=== PATIENT | male | born 1945 | race Caucasian/White ===

== ENCOUNTER 2017-11-30 13:08 | Emergency (ER) | payer OTHER ==
[2017-11-30] MEDS ORDERED: ANECTINE IVP STA (13:17)
[2017-11-30] MEDS ORDERED: AMIDATE IVP STA (13:18)
[2017-11-30] MEDS ORDERED: LASIX IVP STA (13:19)
[2017-11-30 13:24] VITALS: TEMP 98.3; BMI 31.6
[2017-11-30] MEDS ORDERED: SUBLIMAZE ONE (13:26)
[2017-11-30] MEDS ORDERED: VERSED ONE (13:27)
[2017-11-30] MEDS ORDERED: SUBLIMAZE IVP STA (13:33)
[2017-11-30] MEDS ORDERED: VERSED IVP STA (13:33)
--- NOTE | 2017-11-30 13:36 | ED.PDOC ---
General ED Provider: Dr. SAW WESLEY Chief Complaint: Shortness of Air Stated Complaint: SHORTNESS OF BREATH Time Seen by Physician: 13:13 (ARRIVED HYPOXIC WITH OS SAT 70'S ON N.R.B MASK) Mode of Arrival: Ambulance Information Source: Patient Primary Care Provider: MICKIE DA SILVA Nursing and Triage Documentation Reviewed and Agree: Yes (PT HAD A STENT PLACED 4 DAYS AGO AT [facility]) Reviewed sepsis parameters & appropriate labs ordered?: Yes System Inflammatory Response Syndrome: Not Applicable Sepsis Protocol: For patient's 13 years and over: Temp is 96.8 and below OR 101 and greater Pulse >90 BPM Resp >20/minute Acutely Altered Mental Status Are patient's symptoms suggestive of a new infection, such as: -Pneumonia -Skin, Soft Tissue -Endocarditis -UTI -Bone, Joint Infection -Implantable Device -Acute Abdominal Infection -Wound Infection -Meningitis -Blood Stream Catheter Infection -Unknown System Inflammatory Response Syndrome: Not Applicable Respiratory Complaint Exam - Shortness of Air Complaint/Exam Onset/Duration: TODAY ACUTE PRIOR TO ARRIVAL Symptoms Are: Still present ( STATED PT HAD A FEVER WHEN HE WAS D/C FROM [facility]) Timing: Constant Initial Severity: Severe Current Severity: Severe Character: Reports: Dyspnea at rest, Dyspnea on exertion, Orthopnea Aggravating: Reports: Recumbent position Alleviating: Reports: Oxygen, Upright position Associated Signs and Symptoms: Reports: Diaphoresis, Rapid breathing History of Healthcare-Acquired Pneumonia: No Pulmonary Embolism Risk Factors: Reports: Bedrest ( RECENT PROCEDURE STENT ) Cardiac Risk Factors: Reports: CAD, Diabetes, Hypertension Pseudomonas Risk Factors: Reports: None Tuberculosis Risk Factors: Reports: None Home Oxygen Use: No Respiratory Distress: Moderate Stridor Present: No Tracheal Deviation: No Subcutaneous Emphysema: No Accessory Muscle Use: No Retractions: Not Present Diminished Breath Sounds: Yes (RIGHT CHEST RALES ALL LUNG REGIONS) Prolonged Expiratory Phase: No Unable to Speak Full Sentences: No Fatigue: No Leg Swelling: No Jaspreet's Sign Present: No Grunting Respirations: No Kussmaul Respirations: No Differential Diagnoses: CHF, Pulmonary Edema, Pneumonia, Other (SEPSIS .) Review of Systems - Review Of Systems Constitutional: Reports: No symptoms Eyes: Reports: No symptoms Ears, Nose, Mouth, Throat: Reports: No symptoms Respiratory: Reports: Short of air Cardiac: Reports: No symptoms GI: Reports: No symptoms : Reports: No symptoms Musculoskeletal: Reports: No symptoms Skin: Reports: No symptoms Neurological: Reports: No symptoms Endocrine: Reports: No symptoms Hematologic/Lymphatic: Reports: No symptoms All Other Systems: Reviewed and Negative Past Medical History - Past Medical History Previously Healthy: Yes Endocrine: Reports: DM 2 Cardiovascular: Reports: CAD, Other (AAA S/P REPAIR X 3 DAYS) Respiratory: Reports: None Hematological: Reports: None Gastrointestinal: Reports: None Genitourinary: Reports: None Neuro/Psych: Reports: None Musculoskeletal: Reports: None Cancer: Reports: None - Surgical History General Surgical History: Reports: None - Family History Family History: Reports: None - Social History Smoking Status: Former smoker Hx Substance Use: No Alcohol Screening: None Physical Exam - Physical Exam Appearance: Ill-appearing Ill-appearing: Severe Pain Distress: Severe Eyes: MARCELO, EOMI, Conjunctiva clear ENT: Ears normal, Nose normal, Oropharynx normal Respiratory: Breath sounds diminished, Crackles (RIGHT LUNG) Cardiovascular: RRR, Pulses normal, No rub, No murmur GI/: Nontender, Bowel sounds normal Musculoskeletal: Normal strength, ROM intact, No edema, No calf tenderness Skin: Warm, Dry (BRUSED RIGHT AND LEFT GROIN ) Neurological: Sensation intact, Motor intact, Reflexes intact, Cranial nerves intact, Alert, Oriented Psychiatric: Affect appropriate, Mood appropriate Interpretation - Radiology Interpretation Radiology Interpretation By: Radiologist (PULMONARY EDEMA INTUBATED TUBE POSTION CHECKED) Radiology Results: Positive (PULMONARY EDEMA /ARDS) - Hydrology Technician Rate: Normal Rhythm: Sinus Ectopy: None - EKG Interpretation Rate: Normal Rhythm: Sinus Ectopy: None [place]: NL ST Segment: Normal Procedures - Intubation Indication: Present: Respiratory Insufficiency, Airway Protection, Other (poor pulse ox in 60's and 70's while on NRB pulmonary edema S/P AAA REPAIR) Medications: Yes: Succinylcholine, Versed, Other (ETOMIDATE ) Type of Tube Used: Endotracheal Tube Size: 7 Cricoid Pressure Used: Yes Tube Patel Used: Yes Number of Attempts: 1 Suction Used: Yes Glidescope Used: No CO2 Detector Used: Yes (CONFIRMED ) Lung Sounds Equal Bilaterally: Yes Intubation Complications: Present: No complications Tube Inserted By: MARYJANE RICHARDS Tube Placement Verified by X-ray: Yes Re-Evaluation - Re-Evaluation Time of Re-Evaluation: 13:22 Status: Unchanged Vital Signs Stable: Yes Pain Level: UNCERTAIN NO PAIN ARRIVAL INTUBATED BY ALDOATI 1ST PASS 13:22 Appearance: NAD Lungs: Other (RALES RIGHT LUNG) Skin: Warm and Dry Neuro: Alert and Oriented X3 CV: RRR - Re-Evaluation Time of Re-Evaluation: 02:30 Status: Improved Vital Signs Stable: Yes Appearance: NAD Skin: Warm and Dry Neuro: Alert and Oriented X3 CV: RRR (WENT CT DEPT WITH NORMAL BLOOD PRESSURE AND REMAINED STABLE PRESENT AT 2:40 PM B/P 121/76 02 SAT 94% HR 67) Physician Notification - Case Discussed Physician Notified: MANUEL RICHARDS Time of Notification: 15:03 (TRANSFER NOW) Critical Care Note - Critical Care Note Total Time (mins): 180 Course - Course Hematology/Chemistry: 11/30/17 13:25 11/30/17 13:25 Orders, Labs, Meds: Lab Review 11/30/17 11/30/17 11/30/17 13:25 13:25 13:25 WBC 13.66 H RBC 3.59 L Hgb 11.2 L Hct 33.1 L MCV 92.2 MCH 31.2 H MCHC 33.8 RDW Coeff of Bulmaro 13.1 Plt Count 108 L Immature Gran % (Auto) 0.6 Neut % (Auto) 88.6 Lymph % (Auto) 4.2 L Guthrie % (Auto) 5.5 Eos % (Auto) 0.9 Baso % (Auto) 0.2 Immature Gran # (Auto) 0.1 Neut # (Auto) 12.1 H Lymph # (Auto) 0.6 Guthrie # (Auto) 0.8 Eos # (Auto) 0.1 Baso # (Auto) 0.0 PT 9.8 INR 0.98 APTT 26.3 Puncture Site O2 Saturation ABG pH ABG pCO2 ABG pO2 ABG HCO3 ABG Total CO2 ABG Base Excess Clif Test O2 Delivery Device Oxygen Liter Flow FiO2 % Sodium 138 Potassium 4.0 Chloride 105 Carbon Dioxide 20 L Anion Gap 17.0 BUN 20 H Creatinine 1.18 H Estimated GFR (MDRD) 61.00 BUN/Creatinine Ratio 16.94 Glucose 186 H Lactic Acid Calcium 8.6 Total Bilirubin 0.9 AST 18 ALT 12 Alkaline Phosphatase 39 L Total Creatine Kinase 112 Troponin I 0.0170 B-Natriuretic Peptide Total Protein 6.1 Albumin 2.9 L Globulin 3.2 Albumin/Globulin Ratio 0.91 Procalcitonin Urine Color Urine Clarity Urine pH Ur Specific [place] Urine Protein Urine Glucose (UA) Urine Ketones Urine Blood Urine Nitrite Urine Bilirubin Urine Urobilinogen Ur Leukocyte Esterase Ur Squamous Epith Cells Urine Mucus 11/30/17 11/30/17 11/30/17 13:25 13:25 13:30 WBC RBC Hgb Hct MCV MCH MCHC RDW Coeff of Bulmaro Plt Count Immature Gran % (Auto) Neut % (Auto) Lymph % (Auto) Guthrie % (Auto) Eos % (Auto) Baso % (Auto) Immature Gran # (Auto) Neut # (Auto) Lymph # (Auto) Guthrie # (Auto) Eos # (Auto) Baso # (Auto) PT INR APTT Puncture Site O2 Saturation ABG pH ABG pCO2 ABG pO2 ABG HCO3 ABG Total CO2 ABG Base Excess Clif Test O2 Delivery Device Oxygen Liter Flow FiO2 % Sodium Potassium Chloride Carbon Dioxide Anion Gap BUN Creatinine Estimated GFR (MDRD) BUN/Creatinine Ratio Glucose Lactic Acid 30.7 H Calcium Total Bilirubin AST ALT Alkaline Phosphatase Total Creatine Kinase Troponin I B-Natriuretic Peptide 549 H Total Protein Albumin Globulin Albumin/Globulin Ratio Procalcitonin < 0.05 Urine Color Urine Clarity Urine pH Ur Specific [place] Urine Protein Urine Glucose (UA) Urine Ketones Urine Blood Urine Nitrite Urine Bilirubin Urine Urobilinogen Ur Leukocyte Esterase Ur Squamous Epith Cells Urine Mucus 11/30/17 11/30/17 11/30/17 14:00 14:03 14:48 WBC RBC Hgb Hct MCV MCH MCHC RDW Coeff of Bulmaro Plt Count Immature Gran % (Auto) Neut % (Auto) Lymph % (Auto) Guthrie % (Auto) Eos % (Auto) Baso % (Auto) Immature Gran # (Auto) Neut # (Auto) Lymph # (Auto) Guthrie # (Auto) Eos # (Auto) Baso # (Auto) PT INR APTT Puncture Site R rad L rad O2 Saturation 76.0 L 86.0 L ABG pH 7.389 7.326 L ABG pCO2 34.1 L 42.0 ABG pO2 41.0 L* 56.0 L* ABG HCO3 20.6 L 21.9 L ABG Total CO2 22 23 ABG Base Excess -4 L -4 L Clif Test + + O2 Delivery Device Nrb Vent Oxygen Liter Flow 15.00 FiO2 % 100.0 100.0 Sodium Potassium Chloride Carbon Dioxide Anion Gap BUN Creatinine Estimated GFR (MDRD) BUN/Creatinine Ratio Glucose Lactic Acid Calcium Total Bilirubin AST ALT Alkaline Phosphatase Total Creatine Kinase Troponin I B-Natriuretic Peptide Total Protein Albumin Globulin Albumin/Globulin Ratio Procalcitonin Urine Color Yellow Urine Clarity Clear Urine pH 5.5 Ur Specific [place] 1.025 Urine Protein 2+ Urine Glucose (UA) Negative Urine Ketones Negative Urine Blood Negative Urine Nitrite Negative Urine Bilirubin Negative Urine Urobilinogen 0.2 Ur Leukocyte Esterase Negative Ur Squamous Epith Cells 0-2 Urine Mucus Trace Orders Category Date Time Status ABG DRAW REQUEST DAILY@0600 CARDIO 12/02/17 06:00 Ordered ABG DRAW REQUEST DAILY@0600 CARDIO 12/03/17 06:00 Ordered ABG DRAW REQUEST DAILY@0600 CARDIO 12/04/17 06:00 Ordered ABG DRAW REQUEST Routine CARDIO 11/30/17 14:00 Completed ABG DRAW REQUEST Stat CARDIO 11/30/17 14:49 Completed BIPAP Routine CARDIO 11/30/17 13:16 Completed EKG-(ED ONLY) Stat CARDIO 11/30/17 13:16 Completed EKG-(ED ONLY) Stat CARDIO 11/30/17 14:42 Completed VENTILATOR Routine CARDIO 11/30/17 13:30 Ordered NPO REMINDER: IMAGING ONCE CARE 11/30/17 13:41 Completed ED IV/MEDIPORT/POWERPORT .ONCE EMERGENCY 11/30/17 13:17 Active ABG DAILY@0600 LAB 12/01/17 06:00 Ordered ABG DAILY@0600 LAB 12/02/17 06:00 Ordered ABG DAILY@0600 LAB 12/03/17 06:00 Ordered ABG DAILY@0600 LAB 12/04/17 06:00 Ordered ABG Stat LAB 11/30/17 14:00 Completed ABG Stat LAB 11/30/17 14:48 Completed BLOOD CULTURE (ED ONLY) Stat LAB 11/30/17 13:35 Received BNP [B-TYPE NATRIURETIC PEPTIDE] Stat LAB 11/30/17 13:30 Completed CBC W/ AUTO DIFF Stat LAB 11/30/17 13:25 Completed COMPREHENSIVE METABOLIC PANEL Stat LAB 11/30/17 13:25 Completed CREATINE KINASE Stat LAB 11/30/17 13:25 Completed LACTIC ACID Stat LAB 11/30/17 13:25 Completed PARTIAL THROMBOPLASTIN TIME Stat LAB 11/30/17 13:25 Completed PROCALCITONIN Stat LAB 11/30/17 13:25 Completed PT WITH INR Stat LAB 11/30/17 13:25 Completed TROPONIN I Stat LAB 11/30/17 13:25 Completed URINALYSIS C & S IF INDICATED Stat LAB 11/30/17 14:03 Completed 0.9 % Sodium Chloride [Saline Flush] MEDS 11/30/17 13:17 Active 1 syr IVF PRN PRN Etomidate [Amidate] MEDS 11/30/17 13:18 Discontinued 10 mg IVP ONCE STA Fentanyl Vial [Sublimaze] MEDS 11/30/17 13:26 Discontinued 100 mcg .ROUTE .STK-MED ONE Fentanyl Vial [Sublimaze] MEDS 11/30/17 13:33 Discontinued 50 mcg IVP ONCE STA Furosemide [Lasix] MEDS 11/30/17 13:19 Discontinued 40 mg IVP ONCE STA Lorazepam [Ativan] MEDS 11/30/17 15:31 Discontinued 2 mg IVP ONCE STA Lorazepam [Ativan] 1 ml MEDS 11/30/17 15:34 Discontinued .ROUTE .STK-MED Midazolam HCl Inj [Versed] MEDS 11/30/17 13:27 Discontinued 5 mg .ROUTE .STK-MED ONE Midazolam HCl Inj [Versed] MEDS 11/30/17 13:33 Discontinued 5 mg IVP ONCE STA Piperacillin Sodium/Tazobactam [Zosyn 4.5 gm] 4.5 gm MEDS 11/30/17 14:03 Discontinued 0.9 % Sodium Chloride [Sodium Chloride] 50 ml IV ONCE Premix Vial [Premix Infusion 100 ml Vial] 1 vial MEDS 11/30/17 14:00 Active Propofol Inj [Diprivan 100 ml Vial] 1,000 mg IV 50 mcg/kg/min Propofol Inj [Diprivan 100 ml Vial] 100 ml MEDS 11/30/17 13:39 Discontinued IV .STK-MED Propofol Inj [Diprivan 20 ml Vial] MEDS 11/30/17 13:45 Discontinued 100 mg IVP ONCE STA Succinylcholine Chloride [Anectine] MEDS 11/30/17 13:17 Discontinued 100 mg IVP ONCE STA Vancomycin HCl [Vancomycin] 1 gm MEDS 11/30/17 14:47 Discontinued 0.9 % Sodium Chloride [Sodium Chloride] 250 ml IV ONCE Vecuronium Jewell [Norcuron] MEDS 11/30/17 14:55 Discontinued 4 mg IVP ONCE STA Vecuronium Jewell [Norcuron] MEDS 11/30/17 13:58 Discontinued 8 mg IVP ONCE STA CHEST, 1V AP ONLY Stat RADS 11/30/17 13:15 Completed CHEST, 1V AP ONLY Stat RADS 11/30/17 13:34 Completed CHEST, 1V AP ONLY Stat RADS 11/30/17 13:[address] ABDOMEN/PELVIS WO CONTRAST Stat RADS 11/30/17 14:[address] CHEST W/O CONTRAST Stat RADS 11/30/17 14:06 Completed Medications Generic Name Dose Route Start Last Admin Trade Name Freq PRN Reason Stop Dose Admin Propofol 1,000 mg/ Sterile 100 mls @ 27.51 mls/hr 11/30/17 14:00 11/30/17 13: 47 Water IV 50 mcg/kg/min .Q3H39M YULIANA 27.51 mls/hr Administration Protocol 50 MCG/KG/MIN Sodium Chloride 1 syr 11/30/17 13:17 11/30/17 13:31 Saline Flush IVF 1 syr PRN PRN Administration To flush IV Discontinued Medications Generic Name Dose Route Start Last Admin Trade Name Freq PRN Reason Stop Dose Admin Etomidate 10 mg 11/30/17 13:18 11/30/17 13:31 Amidate IVP 11/30/17 13:19 10 mg ONCE STA Administration Fentanyl Citrate 50 mcg 11/30/17 13:33 11/30/17 13:36 Sublimaze IVP 11/30/17 13:34 50 mcg ONCE STA Administration Furosemide 40 mg 11/30/17 13:19 11/30/17 13:33 Lasix IVP 11/30/17 13:20 40 mg ONCE STA Administration Piperacillin Sod/Tazobactam 50 mls @ 50 mls/hr 11/30/17 14:03 11/30/17 14:25 Sod 4.5 gm/ Sodium Chloride IV 11/30/17 15:02 50 mls/hr ONCE STA Administration Vancomycin HCl 1 gm/ Sodium 250 mls @ 250 mls/hr 11/30/17 14:47 11/30/17 14: 58 Chloride IV 11/30/17 15:46 250 mls/hr ONCE STA Administration Lorazepam 2 mg 11/30/17 15:31 11/30/17 15:36 Ativan IVP 11/30/17 15:32 2 mg ONCE STA Administration Midazolam HCl 5 mg 11/30/17 13:33 11/30/17 13:37 Versed IVP 11/30/17 13:34 Not Given ONCE STA Propofol 100 mg 11/30/17 13:45 11/30/17 13:49 Diprivan 20 Ml Vial IVP 11/30/17 13:46 100 mg ONCE STA Administration Succinylcholine Chloride 100 mg 11/30/17 13:17 11/30/17 13:30 Anectine IVP 11/30/17 13:18 100 mg ONCE STA Administration Vecuronium Jewell 8 mg 11/30/17 13:58 11/30/17 14:07 Norcuron IVP 11/30/17 13:59 8 mg ONCE STA Administration Vecuronium Jewell 4 mg 11/30/17 14:55 11/30/17 15:06 Norcuron IVP 11/30/17 14:56 4 mg ONCE STA Administration Vital Signs: Temp Pulse Resp BP Pulse Ox 11/30/17 14:00 20 11/30/17 13:47 64 20 190/101 H 11/30/17 13:30 18 11/30/17 13:15 73 L 11/30/17 13:13 98.3 F 82 44 H 167/72 H 72 L Departure - Departure Time of Disposition: 16:30 Disposition: TSF SHORT-TRM HOSP Discharge Problem: Acute respiratory failure Qualifiers: Respiratory failure complication: unspecified whether with hypoxia or hypercapnia Qualified Code(s): J96.00 - Acute respiratory failure, unspecified whether with hypoxia or hypercapnia Instructions: Pulmonary Edema (ED) Condition: Good Pt referred to PMD for follow-up: Yes IPMP verified?: No Additional Instructions: Please call your Family Physician as soon as possible to schedule a follow-up appointment. Allergies/Adverse Reactions: Allergies No Known Allergies Allergy (Unverified 11/30/17 13:38) Disposition Discussed With: Patient, Family
[2017-11-30] MEDS ORDERED: DIPRIVAN 100 ML VIAL 100 ML IV ONE (13:39)
[2017-11-30] MEDS ORDERED: DIPRIVAN 20 ML VIAL IVP STA (13:45)
[2017-11-30 13:48] VITALS: BP 190/101
[2017-11-30] MEDS ORDERED: NORCURON IVP STA ×2 (13:58→14:55)
[2017-11-30] MEDS ORDERED: DIPRIVAN 100 ML VIAL 1,000 MG in PREMIX INFUSION 100 ML VIAL 1 VIAL IV SCH (14:00)
[2017-11-30] MEDS ORDERED: ZOSYN 4.5 GM 4.5 GM in SODIUM CHLORIDE 50 ML IV STA (14:03)
--- NOTE | 2017-11-30 14:15 | ED.PDOC ---
Procedures - Intubation Time of Intubation: 13:32 Medications: Yes: Norcuron, Succinylcholine, Versed, Propofol, Other (fentanyl, see nsg notes for time and dosages of meds.) Type of Tube Used: Endotracheal Tube Size: 7 Cricoid Pressure Used: Yes Tube Patel Used: Yes Position of Tube at Lip: 22 Number of Attempts: 1 Suction Used: No Glidescope Used: No CO2 Detector Used: Yes Lung Sounds Equal Bilaterally: Yes Intubation Complications: Present: No complications Tube Inserted By: Dr. Vivas / Percy Rodríguez MULTINEEDLE SHIRRER Tube Placement Verified by X-ray: Yes Conscious Sedation - Pre-op Assessment Weight: 202 lb 2.622 oz Surgical History: stent for AAA 11/27/17. bypass 1996 - Medical History Past Medical History: Hypertension, [place], Kidney Stones - Physical Exam Heart Rate/Rhythm: Regular Rate
--- NOTE | 2017-11-30 14:16 | ED.PDOC ---
Procedures - IV/Art Line Insertion Location: LT RADIAL Type of Line: Arterial Line Invasive Line/IV Catheter Gauge: 25 Number of Attempts: 1 Blood Return Positive: Yes (Art stick for ABGs) Conscious Sedation - Pre-op Assessment Weight: 202 lb 2.622 oz Surgical History: stent for AAA 11/27/17. bypass 1996 - Medical History Past Medical History: Hypertension, [place], Kidney Stones - Physical Exam Heart Rate/Rhythm: Regular Rate
--- NOTE | 2017-11-30 14:17 | DI ---
EXAM: Single view of the chest. History: Intubation. Comparison: Chest radiograph 11/30/2017 Findings: Heart remains enlarged. Sternotomy wires. Endotracheal tube tip is at the level of the cl avicles. No pneumothorax. No significant interval change in the severe right lung infiltrates and mo derate left lung infiltrates. No acute osseous abnormalities. Impression: 1. Endotracheal tube placement. 2. No significant interval change in the right greater than left bilateral lung infiltrates could re present edema, pneumonia or ARDS.
--- NOTE | 2017-11-30 14:20 | DI ---
Exam: Four views of the chest. Comparison: None available. Reason for exam: Intubation. FINDINGS: Interval placement of an endotracheal tube with the tip seen approximately 6 cm above the level of the toya. There is obscuration of the heart borders and hemidiaphragms secondary to diffu se patchy airspace opacities throughout the lungs. Operative changes are seen after midline sternoto my. Impression: 1. Patchy airspace opacities are seen throughout the lung parenchyma with obscuration of the heart b orders and left hemidiaphragm. Imaging findings are most consistent with pulmonary edema or multi foc al pneumonia. 2. Endotracheal tube is seen approximately 6 cm above the level of the toya.
--- NOTE | 2017-11-30 14:38 | CT ---
Exam: CT chest without intravenous contrast. Comparison: None available. Reason for exam: Postop CABG. Aortic stent placement 3 days ago. FINDINGS: Endotracheal tube is seen above the level of the toya. No pneumothorax. Ground-glass o pacities are seen throughout the lung parenchyma with air bronchograms. There are small to moderatel y sized bilateral pleural effusions with basilar atelectasis/pneumonia. Operative changes are seen a fter midline sternotomy. The heart is prominent in size. Image interpretation is limited by the lack of intravenous contrast administration. There is atherosclerotic disease within the aorta and distal arterial vasculature including the coron elida vessels. No suspicious appearing osteoblastic or osteolytic lesions. There are prominent appearing mediastinal and lower neck lymph nodes that are incompletely evaluated without intravenous contrast administration. Impression: 1. Ground-glass opacities throughout the lung parenchyma with air bronchograms. Imaging findings giles ggest pulmonary edema. 2. Small to moderately sized bilateral pleural effusions of overlying consolidative changes. Imagin g findings are most consistent with basilar pneumonia. 3. Prominent appearing mediastinal lymph nodes incompletely evaluated without intravenous contrast. Lymph node enlargement can be seen with inflammation, reactivity, infection, and neoplasia. Follow- up imaging is recommended to document resolution
--- NOTE | 2017-11-30 14:38 | CT ---
EXAM: CT abdomen and pelvis without contrast HISTORY: Postoperative CABG, aortic stent placement 3 days ago, hypoxia TECHNIQUE: Multi-slice transaxial helical with coronal and sagittal reformed images COMPARISON: None FINDINGS: Small pleural effusions layer dependently with subjacent ground-glass opacities in the midd le lobe, lingula, and both lower lobes. No pericardial effusion is appreciated. The hepatic attenuation is normal relative to the spleen. The spleen has normal size and attenuation . The gallbladder is present without biliary position. There are scattered calcifications in the pa ncreas compatible with chronic pancreatitis. The adrenal glands have normal attenuation and morpholo gy. A nonobstructing calculus at the superior pole of the right kidney is 8 mm. There is focal renal cor tical thinning at the superior pole of the right kidney. A small hemorrhagic or proteinaceous cyst i s suggested at the inferior pole of the left kidney. The ureters have normal caliber. The bladder i s decompressed by a Maddox catheter and contains gas. There are calcifications in the prostate. A moderate quantity of diffuse colonic stool is noted. No small bowel dilatation is appreciated. Th e appendix is normal. A fusiform infrarenal abdominal aortic aneurysm is 49.3 x 40.8 mm. Endovascul ar stent graft is in place. No lymphadenopathy or ascites. The bones are free of suspicious osteolytic or osteoblastic lesions. IMPRESSION: 1. Small pleural effusions with subjacent pneumonitis and/or pulmonary edema. 2. Mild cardiomegaly and post trauma. 2. Possible constipation with moderate quantity colonic stool. 3. Nonobstructive intestinal gas pattern. 4. Nonobstructing right nephrolithiasis. 5. Fusiform infrarenal abdominal aortic aneurysm measuring 49.3 x 48.0 mm with endovascular stent gr aft in place. 6. Chronic pancreatitis.
[2017-11-30] MEDS ORDERED: VANCOMYCIN 1 GM in SODIUM CHLORIDE 250 ML IV STA (14:47)
[2017-11-30] MEDS ORDERED: ATIVAN IVP STA (15:31)
[2017-11-30] MEDS ORDERED: ATIVAN 1 ML ONE (15:34)
== END 2017-11-30 16:30 | disposition short-term general hospital (02) ==
LOC: ED 13:08
DX: J96.00 Acute respiratory failure, unspecified whether with hypoxia or hypercapnia (principal); I25.10 Atherosclerotic heart disease of native coronary artery without angina pectoris; E11.9 Type 2 diabetes mellitus without complications; I10 Essential (primary) hypertension; Z98.890 Other specified postprocedural states; J81.1 Chronic pulmonary edema; Z95.828 Presence of other vascular implants and grafts; R06.02 Shortness of breath; R53.1 Weakness; R11.0 Nausea; I71.4 Abdominal aortic aneurysm, without rupture; R41.82 Altered mental status, unspecified; T40.2X1A Poisoning by other opioids, accidental (unintentional), initial encounter
CPT/HCPCS: 36415; 80053; 81001; 82550; 82803; 83605; 83880; 84145; 84484; 85025; 85610; 85730; 87040; 93005; 93010; 94660; 96365; 96367; 96375; 99291; 99292